=== PATIENT | female | born 1975 | race Caucasian/White ===

== ENCOUNTER 2019-05-22 09:14 | Emergency (ER) | payer OTHER, SELFPAY ==
--- NOTE | ~2019-05-22 | US_ITS ---
US venous doppler LE RT DATE: 05/22/2019 11:58 INDICATION: Right lower extremity pain. Hysterectomy 2 weeks ago. TECHNIQUE: Real-time and color flow imaging and Doppler analysis of the veins of the right lower extr emity COMPARISON: 11/08/2016 venous duplex examination of the right lower extremity; no right lower extremit y deep venous thrombosis was noted FINDINGS: The greater saphenous vein is patent. There is spontaneous and phasic flow and normal augme ntation and color flow signal and normal compression of the deep veins of the right lower extremity. IMPRESSION: No evidence of deep venous thrombosis of right lower extremity Reviewed, dictated and finalized at [facility]. Reviewed, dictated and finalized at location B. PREPARATION KITCHEN AIDE
--- NOTE | ~2019-05-22 | CT_ITS ---
EXAMINATION: CTA chest PE protocol EXAM DATE: 05/22/2019 12:34 INDICATION: Left-sided chest pain. Back pain. Hysterectomy 2 weeks ago. TECHNIQUE: Spiral CTA of the chest (pulmonary arteries) was performed with 100 cc Omnipaque 350 intr avenous contrast injection. Images were acquired during the pulmonary arterial phase. Coronal maxi mum intensity projection 3D-reconstructions were created by the technologist on dedicated workstation . Axial, coronal and sagittal reformatted images were reviewed. The dose-length product (DLP) for t his examination was 164.97 mGy-cm. The exposure was tailored according to patient size (auto mA exp osure control), and iterative reconstruction (ASIR) was used as additional dose reduction technique. There is no prior study for comparison. FINDINGS: Pulmonary arteries are well opacified and without intraluminal filling defects. No thora cic aortic dissection. The lungs are clear. There are no pleural or pericardial effusions. Trach eobronchial tree is patent. There is no mediastinal, hilar or axillary lymphadenopathy. There is no pneumothorax. Heart normal in size. No evidence of coronary arterial calcification. Breast imp lants. Upper abdomen is unremarkable. The bones are unremarkable. IMPRESSION: 1. No pulmonary emboli or acute cardiothoracic findings. Reviewed, dictated and finalized at location A. E FUND ACCOUNTANT
[2019-05-22 09:22] VITALS: BP 131/75; PULSE 81; RESP 16; TEMP 36.4; O2SAT 100
[2019-05-22 11:08] VITALS: BP 131/75; O2SAT 100
--- NOTE | 2019-05-22 11:08 | ED.BACK ---
HPI - Back Pain/Injury General Chief Complaint: Back Pain/Injury Stated Complaint: BACK PAIN Time Seen by Provider: 05/22/19 11:07 Source: patient Mode of arrival: ambulatory Limitations: no limitations History of Present Illness HPI Narrative: Pt is a 43 y/o female who presents to ED with c/o constant rt upper back pain that radiates to her rt chest for 5 days, but has worsened in the last 2 days. She characterizes her pain as intermittently burning, stabbing, or a dull ache. Pt took Ibuprofen, used a heating pad, and rubbed on bengay with no relief. Her pain is aggravated when she breaths out, but she denies SOB. Pt denies her pain being aggravated with movement or alleviated with rest. She denies a cough but notes that she has palpitations but contributes it to her getting anxious about her pain. She reports rt thigh tightness that she has had since her hysterectomy surgery. Pt notes that she had a hysterectomy 2 weeks ago and she had a check-up yesterday that was normal. She stopped taking her pain medicine from her hysterectomy yesterday. Pt denies BLE swelling. MD elicited complaint: back pain Onset (ago): day(s) (5) Timing: constant and progressively worsening (in the last 2 days) Quality: burning, dull, stabbing and aching Location: right upper back Radiation: chest (rt) Exacerbating factors: other (breathing out) Relieving factors: none Context: other (hysterectomy 2 weeks ago) Associated symptoms: other (rt thigh tightness, palpitations) Treatments prior to arrival: heat therapy and other (Ibuprofen, bengay) Related Data Home Medications Medication Instructions Recorded Confirmed No Home Medications 05/22/19 05/22/19 Allergies Allergy/AdvReac Type Severity Reaction Status Date / Time Penicillins Allergy Severe Rash Verified 05/22/19 11:12 Review of Systems Review of Systems: All systems reviewed & are unremarkable except as noted in HPI and below Cardiovascular: Cardiovascular: Reports chest pain (rt) and Reports palpitations Respiratory: Respiratory: Denies cough and Denies dyspnea Musculoskeletal: Musculoskeletal: Reports back pain (rt upper) and Reports other (rt thigh tightness) Comments: Denies BLE swelling PMFSH Past Medical History Medical History (Updated 05/22/19 @ 14:43 by Araceli Wood MD) Anxiety History of anemia History of hypothyroidism resolved Ovarian cyst Psoriasis Uterine polyp Surgical History Surgical History (Updated 05/22/19 @ 11:43 by Meme Rondon) H/O cervical polypectomy H/O prior ablation treatment For excessive vaginal bleeding H/O: hysterectomy Hx of breast implants, bilateral Social History Social History (Updated 05/22/19 @ 11:43 by Meme Rondon) Smoking status: Never smoker Comments Her OBGYN is Dr. Shearer and her PCP is Dr. Fischer. Exam Const: General: cooperative, no acute distress and alert Nutritional Appearance: well nourished Orientation/consciousness: patient oriented x3 Limitations: no limitations HENMT: Mouth: Yes lip normal and Yes moist mucous membranes Resp: Effort & Inspection: normal respiratory effort Auscultation: clear to auscultation bilaterally Cardio: Rate: regular rate Rhythm: regular rhythm GI: GI Palp: Yes Soft to palpation and Yes Tenderness to palpation present (GI) (mild lower ABD) Auscultation: normal bowel sounds Skin: General skin exam: normal color Rashes: no rashes Neuro: General: patient oriented x3 Cognition (Neuro): normal cognition Speech: normal speech Extrem: General: normal to inspection, full ROM and no clubbing, cyanosis or edema Right lower extremity: hip/thigh Details: tenderness (thigh, mild) and lower leg Details: tenderness (mild, calf) Psych: Mental Status: mental status grossly normal Affect: normal affect Attitude: cooperative Course Course Emergency Course: Patient with no acute abnormalities noted on testing to account for symptomatology. No evidence of pulmonary e
--- NOTE | 2019-05-22 11:19 | ECG_ITS ---
Measurements Intervals [place] Rate: 71 P: 64 TN: 153 QRS: 39 QRSD: 92 T: 53 QT: 364 QTc: 396 Interpretive Statements SINUS RHYTHM RSR' IN V1 OR V2, CONSIDER RIGHT VENTRICULAR HYPERTROPHY OR RIGHT VCD BORDERLINE T WAVE ABNORMALITY- INFERIOR LEADS BORDERLINE ECG Electronically Signed On 05-22-2019 16:16:38 RESEARCH AND DEVELOPMENT SPECIALIST by Bong Begum D.O.
[2019-05-22 12:06] LABS: Basophils Absolute Auto 0.1 K/mm3 (0.0-0.1); Basophils Percent Auto 0.9 % (0.2-1.2); Eosinophils Absolute Auto 0.1 K/mm3 (0-0.3); Eosinophils Percent Auto 1.6 % (0-4.4); Hematocrit 37.7 % (37.0-47.0); Hemoglobin 12.9 g/dL (12.0-15.0); Immature Granulocyte Absolute 0.02 K/mm3 (0.00-0.031); Immature Granulocyte Percent A 0.3 % (0-0.5); Lymphocytes Absolute Auto 1.47 K/mm3 (0.9-3.2); Lymphocytes Percent Auto 22.9 % (18.3-44.2); Mean Corpuscular HGB Conc 34.2 g/dl (32-36); Mean Corpuscular Hemoglobin 29.6 pg (26-34); Mean Corpuscular Volume 86.5 fl (80-100); Mean Platelet Volume 9.5 fl (7.4-10.4); Monocytes Absolute Auto 0.3 K/mm3 (0.1-0.6); Monocytes Percent Auto 3.9 % (2.6-8.5); Neutrophils Absolute Auto 4.5 K/mm3 (1.3-6.7); Neutrophils Percent Auto 70.4 % (45.5-73.1); Platelet Count Result 267 k/mm3 (150-375); Red Blood Count 4.36 M/mm3 (4.2-5.4); Red Cell Distribution Width 11.9 % (11.5-14.5); White Blood Count 6.4 K/mm3 (4.5-10.0)
[2019-05-22 12:17] LABS: Blood Urea Nitrogen 9 mg/dL (7-17); Calcium 9.4 mg/dL (8.4-10.2); Carbon Dioxide 25 mmol/L (22-30); Chloride 99 mmol/L (98-107); Estimated CRCL calculation 77 ml/min; Estimated Glomerular Filt Rate > 60; Glucose 94 mg/dL (65-105); Partial Thromboplastin Time 30.4 SECONDS (22.3-36.8); Potassium 3.9 mmol/L (3.4-5.0); Sodium 139 mmol/L (137-145)
[2019-05-22 12:21] LABS: Prothrombin Time 12.5 Seconds (11.1-14.7)
[2019-05-22 12:28] VITALS: PULSE 75; RESP 18; O2SAT 100
[2019-05-22 12:30] LABS: NT Pro B Type Natriuretic Pept 86 PG/ML (5-100); Troponin I < 0.012 ng/mL (0.000-0.034)
[2019-05-22] MEDS: KETOROLAC 30 MG/ML VIAL (*BKC) IV PUSH (12:45)
[2019-05-22 14:30] VITALS: BP 117/90; PULSE 75; RESP 16
== END 2019-05-22 14:57 | disposition home or self-care (01) ==
PROVIDERS: Emergency Provider Emergency Medicine; PCP Family Medicine
DX: R07.81 Pleurodynia (principal); M54.6 Pain in thoracic spine; Z86.2 Personal history of diseases of the blood and blood-forming organs and certain disorders involving the immune mechanism; R94.31 Abnormal electrocardiogram [ECG] [EKG]
CPT/HCPCS: 36415; 71275; 80048; 83880; 84484; 85025; 85610; 85730; 93005; 93971; 96374; 99284; J1885; Q9967

== ENCOUNTER 2019-09-23 15:05 | Outpatient (CLI) | payer OTHER, SELFPAY ==
--- NOTE | ~2019-09-23 | XR_ITS ---
EXAMINATION: XR tibia fibula LT 2V EXAM DATE: 09/23/2019 15:33 INDICATION: Left leg pain. Hit on metal bed frame. Initial encounter. TECHNIQUE: Left tibia/fibula frontal and lateral projections obtained and reviewed. There is no prio r study for comparison. FINDINGS: Left tibial and fibular shafts unremarkable. There are no acute fractures or dislocations identified. There is no subcutaneous gas. The soft tissue is unremarkable. There are no radiopaq ue foreign bodies. IMPRESSION: 1. Unremarkable XR tibia fibula LT 2V exam. Reviewed, dictated and finalized at location A.
== END 2019-09-23 15:06 | disposition home or self-care (01) ==
PROVIDERS: PCP Family Medicine; Visit Provider Family Medicine
DX: M79.605 Pain in left leg (principal)
CPT/HCPCS: 73590

== ENCOUNTER 2020-01-21 11:24 | Outpatient (CLI) | payer OTHER, SELFPAY ==
--- NOTE | ~2020-01-21 | XR_ITS ---
XR_CERV2-3V_CR DATE: 01/21/2020 11:58 INDICATION: Neck pain. No injury. TECHNIQUE: AP, open-mouth, lateral and odontoid views COMPARISON: None FINDINGS: Normal alignment of the cervical spinal. C1 and C2 are normally aligned and the odontoid pr ocess is intact. No fracture or dislocation or locked facet. No prevertebral soft tissue swelling. Ce rvical interspaces are preserved. IMPRESSION: Negative Reviewed, dictated and finalized at [facility]. Reviewed, dictated and finalized at location A. IMPRESSION: Negative
--- NOTE | ~2020-01-21 | XR_ITS ---
XR thoracic spine 2V DATE: 01/21/2020 11:58 INDICATION: Back pain TECHNIQUE: AP, lateral views COMPARISON: None FINDINGS: Normal alignment of the thoracic spine. No fracture or dislocation or bone destruction. The thoracic pedicles are intact. There is minimal degenerative spurring of the thoracic vertebrae. No p araspinal soft tissue thickening. IMPRESSION: Minimal degenerative spurring Reviewed, dictated and finalized at location A.
== END 2020-01-21 11:25 | disposition home or self-care (01) ==
PROVIDERS: PCP Family Medicine; Visit Provider Nurse Practitioner Family
DX: M54.2 Cervicalgia (principal); M54.6 Pain in thoracic spine; M77.8 Other enthesopathies, not elsewhere classified
CPT/HCPCS: 72040; 72070

== ENCOUNTER → 2020-03-23 11:22 | Outpatient (CLI) | payer OTHER, SELFPAY ==
--- NOTE | ~2020-03-23 | MM_ITS ---
EXAMINATION: MM scrn donna implant BI w elver HISTORY: Screening mammogram TECHNIQUE: Craniocaudal and mediolateral oblique 3-D tomosynthesis images with implant displacement a nd synthetic 2-D images were generated. Craniocaudal and mediolateral oblique views of the breasts wi thout implant displacement were obtained using full field digital mammography. CAD analysis was submi tted and interpreted. COMPARISON: 12/03/2018 BREAST PARENCHYMAL COMPOSITION: The breasts are heterogeneously dense, which may obscure small masses . FINDINGS: There are bilateral subpectoral silicone implants. There is no evidence of suspicious mass, calcification, or architectural distortion to suggest malignancy in either breast. There has been no suspicious interval change. IMPRESSION: 1. No mammographic evidence of malignancy. 2. Recommend routine screening mammography in one year. BI-RADS Category 1: Negative Reviewed, dictated and finalized at location A. E DIRECTOR
== END ==
PROVIDERS: PCP Family Medicine; Visit Provider Obstetrics & Gynecology
DX: Z12.31 Encounter for screening mammogram for malignant neoplasm of breast (principal)
CPT/HCPCS: 77063; 77067

== ENCOUNTER 2020-06-02 15:55 | Emergency (ER) | payer OTHER, SELFPAY ==
[2020-06-02 16:03] VITALS: BP 127/82; PULSE 75; RESP 16; TEMP 37.1; O2SAT 100
--- NOTE | 2020-06-02 16:09 | ED.FEMALEGU ---
HPI - Female Genitourinary General Chief complaint: Urogenital-Female Stated complaint: uti Source: patient and RN notes reviewed Limitations: no limitations History of Present Illness HPI Narrative: The patient, on minimal medications, presents with urinary symptoms. Patient states she has a about a week history of urinary frequency, low back pain associated with urinary malodor . No fever, hematuria, vomiting/diarrhea, urgency. She has had a hysterectomy; and does not desire STD, testing. Related Data Home Medications Medication Instructions Recorded Confirmed multivitamin [Multivitamin 1 tablet PO DAILY 06/02/20 06/02/20 W/Vitamin C] Allergies Allergy/AdvReac Type Severity Reaction Status Date / Time Penicillins Allergy Intermediate Rash Verified 06/02/20 16:06 Review of Systems Review of Systems: Narrative: General/Constitutional: No weight loss,fever Eyes: N0: Redness,discharge Ears/Nose/Throat: No: Epistaxis,ear discharge Respiratory: Denies: Hemoptysis Gastrointestinal: No Vomiting, Bleeding-rectal Skin: No Lumps, eruption Neurologic: No Focal Weakness,Sz Hematologic: Denies: Petechiae/Purpura Psychiatric: No: Suicida ideationl All Other Systems: Reviewed and Negative [facility] Past Medical History Medical History (Updated 06/02/20 @ 16:22 by Thomas Wilcox MD) Anxiety History of anemia History of hypothyroidism resolved Ovarian cyst Psoriasis Uterine polyp Surgical History Surgical History (Updated 05/22/19 @ 11:43 by Meme Rondon) H/O cervical polypectomy H/O prior ablation treatment For excessive vaginal bleeding H/O: hysterectomy Hx of breast implants, bilateral Social History Social History (Updated 05/22/19 @ 11:43 by Meme Rondon) Smoking status: Never smoker Gender identity (if verbalized by the patient): Female Comments At time of signature, agree with nursing past medical, surgical, social and family history. There is no relevant family history pertinent to the presenting complaint Exam Narrative: Exam Narrative: General Appearance: Well appearing, Conjunctiva clear Ears: External ear normal Nose: Normal nose Mouth/Throat: Normal appearing, Normal lips: Supple Respiratory: Airway patent, No respiratory distress Abdomen: Soft, Non-tender, Musculoskeletal: Full ROM Skin: Warm, Dry Neurological: A&O x3, Normal affect Course Vital Signs Vital signs: Vital Signs Temperature 98.8 F 06/02/20 16:03 Pulse Rate 75 06/02/20 16:03 Respiratory Rate 16 06/02/20 16:03 Blood Pressure 127/82 06/02/20 16:03 Pulse Oximetry 100 06/02/20 16:03 Temperature 98.8 F 06/02/20 16:03 Pulse Rate 75 06/02/20 16:03 Respiratory Rate 16 06/02/20 16:03 Blood Pressure 127/82 06/02/20 16:03 Pulse Oximetry 100 06/02/20 16:03 MDM - Female Genitourinary Lab Data Labs: Urine Glucose Negative Reference Range: Negative Urine Bilirubin Negative Reference Range: Negative Urine Ketone Negative Reference Range: Negative Urine Specific Klemme 1.030 Reference Range:1.001-1.035 Urine Blood Negative Reference Range: Negative * * Urine pH 6.0 Reference Range: 5.0-9.0 Urine Protein Negative Reference Range: Negative Urine Urobilinogen 0.2 Reference Range: 0.2-1.0 Urine Nitrate Negative
== END 2020-06-02 16:25 | disposition home or self-care (01) ==
PROVIDERS: Emergency Provider Emergency Medicine; PCP Family Medicine
DX: N30.00 Acute cystitis without hematuria (principal)
CPT/HCPCS: 81003; 87086; 99213; G0463

== ENCOUNTER 2020-06-12 07:57 | Outpatient (CLI) | payer OTHER, SELFPAY ==
--- NOTE | ~2020-06-12 | US_ITS ---
US abdomen complete DATE: 06/12/2020 11:10 INDICATION: Abdominal pain TECHNIQUE: Real-time imaging of the abdomen, Doppler analysis COMPARISON: 12/25/2017 CT abdomen pelvis FINDINGS: No hepatic or pancreatic space-occupying mass lesion. Normal hepatopedal portal venous flow direction. No gallstones or gallbladder wall thickening. Negative sonographic May's sign. Common bile duct measures 2.8 mm, normal. Normal caliber of the abdominal aorta. The inferior vena cava is unremarkable. Splenic size within normal limits. No renal mass lesion or hydronephrosis. IMPRESSION: Negative examination Reviewed, dictated and finalized at Location [facility]. Reviewed, dictated and finalized at location A. RMINATOR HELPER IMPRESSION: Negative examination
== END 2020-06-12 07:58 | disposition home or self-care (01) ==
PROVIDERS: PCP Family Medicine; Visit Provider Family Medicine
DX: R10.9 Unspecified abdominal pain (principal)
CPT/HCPCS: 76700

== ENCOUNTER → 2020-11-03 08:40 | Outpatient (CLI) | payer OTHER, SELFPAY ==
--- NOTE | ~2020-11-03 | MM_ITS ---
EXAMINATION: MM diag donna implant RT w elevr HISTORY: Right breast pain TECHNIQUE: Additional 3-D tomosynthesis images of the right breast were performed and synthetic 2-D i mages were generated. CAD analysis was submitted and interpreted. High resolution complete right lydia st ultrasound was performed. COMPARISON: Comparison to multiple prior studies sequentially, with oldest reviewed study dated 02/15. BREAST PARENCHYMAL COMPOSITION: BREAST PARENCHYMAL COMPOSITION: There are scattered areas of fibrogla ndular density. FINDINGS: MAMMOGRAPHIC FINDINGS: There are no suspicious masses, calcifications or architectural distortion in the right breast to sug gest malignancy. There is a subpectoral silicone implant. ULTRASOUND: Limited right breast ultrasound: At 10:00, 4.5 cm from the nipple there is an oval circumscribed hypo echoic mass measuring 5 mm just superficial to the breast implant. There is enhanced through transmis kj. Parallel orientation. IMPRESSION: 1. Probable benign 5 mm right breast mass at 10:00, 4.5 cm from the nipple. 2. Recommend 6 month follow-up limited right breast ultrasound BI-RADS category 3, probably benign findings. Reviewed, dictated and finalized at location A.
--- NOTE | ~2020-11-03 | US_ITS ---
Please refer to diagnostic mammogram report dated 11/03/2020 for details. Reviewed, dictated and finalized at location A.
== END ==
PROVIDERS: PCP Family Medicine; Visit Provider Family Medicine
DX: N63.11 Unspecified lump in the right breast, upper outer quadrant (principal); N64.4 Mastodynia
CPT/HCPCS: 76641; 77061; 77065; G0279

== ENCOUNTER 2020-12-07 10:45 | Outpatient (CLI) | payer OTHER, SELFPAY ==
--- NOTE | ~2020-12-07 | XR_ITS ---
XR thoracic spine 3V DATE: 12/07/2020 11:14 INDICATION: Thoracic back pain. Back pain TECHNIQUE: AP, lateral, swimmer views COMPARISON: None FINDINGS: Normal alignment. No fracture or bone destruction or paraspinal soft tissue thickening. The thoracic pedicles are intact. There is minimal degenerative spurring of the thoracic spine. IMPRESSION: Minimal degenerative spurring Reviewed, dictated and finalized at location A.
== END 2020-12-07 10:46 | disposition home or self-care (01) ==
PROVIDERS: PCP Family Medicine; Visit Provider Family Medicine
DX: M47.814 Spondylosis without myelopathy or radiculopathy, thoracic region (principal)
CPT/HCPCS: 72072

== ENCOUNTER 2021-07-07 00:03 | Day surgery (SDC) | payer OTHER, SELFPAY ==
[2021-06-23 14:48] VITALS: BMI 21.7
--- NOTE | 2021-07-06 13:03 | PM.HPGS ---
History of Present Illness History of Present Illness Consent: Risks, benefits, and alternatives have been discussed and questions answered. Patient agrees to proceed with procedure. Chief complaint: neoplasm screening, epigastric pain Narrative: Samara Collins is a 45 year old female who for 8 or 9 months has been troubled by pain in the epigastric and subxiphoid area. it was thought that she may have reflux. She however does not have typical heartburn. She also denies dysphagia. the pain can be quite severe at times. There is no particular pattern to the pain which may last for hours or even a few days at a time. Often will radiate around to the back near her shoulder. She did have a gallbladder ultrasound that was negative and was a good study of the gallbladder, liver, pancreas bile ducts and adjacent structures. . She is also due for colon cancer screening Review of Systems Review of Systems: All systems reviewed & are unremarkable except as noted in HPI and below PMFSH Past Medical History Medical History Anxiety History of anemia History of hypothyroidism resolved Ovarian cyst Psoriasis Uterine polyp Surgical History Surgical History H/O cervical polypectomy H/O prior ablation treatment For excessive vaginal bleeding H/O: hysterectomy Hx of breast implants, bilateral Social History Social History Smoking status: Never smoker Alcohol intake: current Drinks per week: 1 Substance use: never Living arrangements: with family Gender identity (if verbalized by the patient): Female Meds Home Medications and Allergies Home Medications Medication Instructions Recorded Confirmed Type Quercetin 1 cap PO DAILY 06/23/21 07/07/21 History cyanocobalamin (vitamin B-12) 250 mcg PO DAILY 06/23/21 07/07/21 History [Vitamin B-12] ergocalciferol (vitamin D2) 1,000 unit PO DAILY 06/23/21 07/07/21 History [Vitamin D2] pantoprazole 40 mg PO QAM 06/23/21 07/07/21 History Allergies Allergy/AdvReac Type Severity Reaction Status Date / Time Penicillins Allergy Intermediate Rash Verified 07/07/21 06:42 Exam Const: General: alert Orientation/consciousness: patient oriented x3 Resp: Auscultation: clear to auscultation bilaterally Cardio: Rhythm: regular rhythm GI: GI Palp: Yes Soft to palpation and No Tenderness to palpation present (GI) Neuro: General: patient oriented x3 Assessment and Plan Assessment and plan (1) Epigastric pain: Code(s): R10.13 - Epigastric pain Status: Acute Assessment and Plan: EGD with possible biopsy or dilatation or cautery. (2) Colon cancer screening: Code(s): Z12.11 - Encounter for screening for malignant neoplasm of colon Status: Acute Assessment and Plan: Colonoscopy with possible biopsy or polypectomy or cautery or injection of substances.
--- NOTE | 2021-07-07 06:27 | P.PNAN_ITS ---
Anes - Initial Pre Proc Eval Procedure: Operation Date: 07/07/21 08:00 Proposed Procedures p Esophagogastroduodenoscopy & Screening Colonoscopy - Kian Encarnacion MD Date/Time: 07/07/21 06:27 Surgeon: Kian Encarnacion MD Pre Op Diagnosis: neoplasm screening, epigastric pain Patient Data Age: 45 Gender: F Height: 1.55 m Weight: 52 kg Allergies Allergy/AdvReac Type Severity Reaction Status Date / Time Penicillins Allergy Intermediate Rash Verified 07/07/21 06:42 Home Medications Medication Instructions Recorded Confirmed Type Quercetin 1 cap PO DAILY 06/23/21 07/07/21 History cyanocobalamin (vitamin B-12) 250 mcg PO DAILY 06/23/21 07/07/21 History [Vitamin B-12] ergocalciferol (vitamin D2) 1,000 unit PO DAILY 06/23/21 07/07/21 History [Vitamin D2] pantoprazole 40 mg PO QAM 06/23/21 07/07/21 History Patient hx anesthesia problems: none Family hx anesthesia problems: none Results Review: All pre-operative results and documents have been reviewed as part of the pre-operative evaluation. [facility] Past Medical History Medical History Anxiety History of anemia History of hypothyroidism resolved Ovarian cyst Psoriasis Uterine polyp Surgical History Surgical History H/O cervical polypectomy H/O prior ablation treatment For excessive vaginal bleeding H/O: hysterectomy Hx of breast implants, bilateral Social History Social History Smoking status: Never smoker Alcohol intake: current Drinks per week: 1 Substance use: never Living arrangements: with family Gender identity (if verbalized by the patient): Female Anes - Eval Final PreProcedure Day of Procedure 07/07/21 06:27 Patient weight: normal Heart: regular rate and rhythm Lungs: clear to auscultation and normal air movement Airway: Mallampati scale class II Neurological: alert and oriented Last oral intake: >/= 8 hours ASA classification: II Emergent: no Anesthetic plan: proceed Anesthesia type and monitoring: general GIVS and standard monitoring Results Review: All pre-operative results and documents have been reviewed as part of the pre-operative evaluation. Informed Consent: The patient's anesthetic plan and its attendant risks and benefits were discussed with the patient/family/POA. Questions were solicited and answers provided to the satisfaction of the patient/family/POA.
[2021-07-07 06:44] VITALS: BP 123/86; PULSE 80; RESP 16; TEMP 36.3; O2SAT 100
[2021-07-07] MEDS: LACTATED RINGERS 1,000 ML 150 ML IV CONT (06:52)
[2021-07-07] MEDS: BENZOCAINE (*SP) 60 ML SPRAY CAN (HURRICAINE) 1 SPRAY MUCOUS MEM (07:58)
--- NOTE | 2021-07-07 08:22 | SUR.OPER ---
EGD start 799 end 802, COLON start 809 - end 819.
[2021-07-07 08:24] VITALS: BP 110/70; PULSE 78; RESP 19; O2SAT 100
[2021-07-07 08:34] VITALS: BP 107/68; PULSE 67; RESP 22; O2SAT 100
[2021-07-07 08:44] VITALS: BP 128/80; PULSE 74; RESP 20; O2SAT 100
== END 2021-07-07 08:56 | disposition home or self-care (01) ==
PROVIDERS: PCP Family Medicine; Visit Provider Internal Medicine Gastroenterology
PROC: 0DJ08ZZ Inspection of Upper Intestinal Tract, Via Natural or Artificial Opening Endoscopic (ICD-10-PCS; CPT 43235; principal; 2021-07-07 08:00)
DX: Z12.11 Encounter for screening for malignant neoplasm of colon (principal); K57.30 Diverticulosis of large intestine without perforation or abscess without bleeding; R10.13 Epigastric pain
CPT/HCPCS: 45378; 43239; 87081; 88305; J2704; J7120

== ENCOUNTER → 2021-10-10 08:14 | Outpatient (CLI) | payer OTHER, SELFPAY ==
--- NOTE | ~2021-10-10 | MMUS_ITS ---
EXAMINATION: MM diag donna implant BI w elver, US breast RT limited HISTORY: Follow-up right breast mass TECHNIQUE: Additional 3-D tomosynthesis images of the right breast were performed and synthetic 2-D i mages were generated. CAD analysis was submitted and interpreted. High resolution right breast ultras ound was performed. COMPARISON: Comparison to multiple prior studies sequentially, with oldest reviewed study dated 02/15. BREAST PARENCHYMAL COMPOSITION: The breasts are heterogenously dense, which may obscure small masses FINDINGS: MAMMOGRAPHIC FINDINGS: There are no suspicious masses, calcifications or architectural distortion in either breast to sugges t malignancy. There are bilateral subpectoral silicone implants. ULTRASOUND: Limited right breast ultrasound: At 10:00, 4.5 cm from the nipple there is a 2 mm cyst. No new masses are identified. IMPRESSION: 1. No evidence for malignancy in either breast. 2. Routine yearly screening mammogram and regular clinical breast examination are recommended. BI-RADS Category 2: Benign finding(s). Reviewed, dictated and finalized at location A. IMPRESSION: 1. No evidence for malignancy in either breast. 2. Routine yearly screening mammogram and regular clinical breast examination a re recommended. BI-RADS Category 2: Benign finding(s).
== END ==
PROVIDERS: PCP Family Medicine; Visit Provider Family Medicine
DX: R92.8 Other abnormal and inconclusive findings on diagnostic imaging of breast (principal)
CPT/HCPCS: 76642; 77062; 77066; G0279

== ENCOUNTER 2022-07-12 19:30 | Emergency (ER) | payer OTHER, SELFPAY ==
[2022-07-12 19:38] VITALS: BP 131/76; PULSE 128; RESP 20; TEMP 37.7; O2SAT 98
--- NOTE | 2022-07-12 19:42 | ED.URI ---
HPI - URI/Sore Throat General Chief Complaint: Upper Respiratory Infection Stated Complaint: FEVER/BACK PAIN/COUGH/SORE THROAT Time Seen by Provider: 07/12/22 19:42 Source: patient and RN notes reviewed History of Present Illness HPI Narrative: Patient is a 46-year-old female who presents to urgent care with complaints of fever, back pain, sore throat cough. Patient states that she was sitting next to a child that was positive for strep this evening. Patient states this all started approximately 330 this afternoon. Patient has taken Advil for her symptoms. Denies any nausea, vomiting. Denies any urinary symptoms. No other acute complaints. No acute distress noted. Patient aware of the plan of care. Some parts of this dictation were generated by voice recognition software and may contain typographical and/or grammatical inaccuracies. Related Data Home Medications Medication Instructions Recorded Confirmed calcipotriene-betamethasone 0.005 1 applic topical DIRECTED 07/12/22 07/12/22 %-0.064 % topical ointment Allergies Allergy/AdvReac Type Severity Reaction Status Date / Time Penicillins Allergy Intermediate Rash Verified 07/12/22 19:34 Review of Systems Review of Systems: CONSTITUTIONAL: Reports fever and chills EYES: Denies visual changes, redness, or discharge. ENT: Denies rhinorrhea, congestion, otalgia. Reports of sore throat CARDIOVASCULAR: Denies chest pain, palpitations, or edema. RESPIRATORY: Denies cough or dyspnea. GASTROINTESTINAL: Denies abdominal pain, nausea, vomiting, or diarrhea. GENITOURINARY: Denies dysuria or hematuria. SKIN: Denies rash or itching. MUSCULOSKELETAL reports of low back pain and body aches NEUROLOGIC: Denies headache, numbness, or weakness. All other systems reviewed are negative, except as documented in HPI. [facility]LY [facility] Past Medical History Medical History Anxiety History of anemia History of hypothyroidism resolved Ovarian cyst Psoriasis Uterine polyp Surgical History Surgical History H/O cervical polypectomy H/O prior ablation treatment For excessive vaginal bleeding H/O: hysterectomy H/O: hysterectomy Hx of breast implants, bilateral Family History Family History (Updated 10/20/21 @ 08:35 by Lety Wooten MA) Sibling Acute myocardial infarction Social History Social History (Updated 10/20/21 @ 08:35 by Lety Wooten MA) Smoking status: Never smoker Alcohol intake: current Drinks per week: 1 Substance use: never Living arrangements: with family Occupation/Education: occupation 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 There is no relevant family history pertinent to the patient complaint. Exam Narrative: GENERAL: This is a well-nourished, well-developed patient, in no apparent distress. HEAD: normocephalic, atraumatic. EYES: PERRL. Sclera clear/white. Vision is grossly intact. EARS: External ears normal, auditory canals clear and without drainage, TMs normal without perforation. Hearing grossly intact. NOSE: External nose normal with no obvious nasal discharge, nares without redness, no rhinorrhea. THROAT: Mucous membranes moist, posterior pharynx clear. Mild postnasal drainage NECK: Neck supple RESPIRATORY: Clear to auscultation. Breath sounds equal bilaterally. No wheezes, rales, or rhonchi. SKIN: warm, intact with no suspicious lesions or rash, good texture and turgor. NEURO: awake, alert, and oriented to person, place and time. There were no obvious focal neurologic abnormalities. EXTREMITIES: No clubbing, cyanosis, or edema. BACK: Mild bilateral CVA tenderness Course Course Level of Care: Express Care Visit Vital
== END 2022-07-12 20:02 | disposition home or self-care (01) ==
PROVIDERS: Emergency Provider Nurse Practitioner Family; PCP Family Medicine
DX: J02.9 Acute pharyngitis, unspecified (principal); R50.9 Fever, unspecified; L40.9 Psoriasis, unspecified
CPT/HCPCS: 81003; 87081; 87880; 99213; G0463

== ENCOUNTER 2022-07-20 17:53 | Outpatient (CLI) | payer OTHER, SELFPAY ==
--- NOTE | ~2022-07-20 | XR_ITS ---
XR chest 2V DATE: 07/20/2022 18:14 INDICATION: Nonproductive cough for one week TECHNIQUE: PA and lateral views COMPARISON: May 22, 2019 CT pulmonary scan FINDINGS: Normal heart size. No hilar or mediastinal enlargement. No pulmonary infiltrate or consolid ation, pleural effusion or pulmonary vascular congestion or pneumothorax. Included skeletal structure s are unremarkable. IMPRESSION: Negative Reviewed, dictated and finalized at location A. IMPRESSION: Negative
== END 2022-07-20 17:54 | disposition home or self-care (01) ==
PROVIDERS: PCP Family Medicine; Visit Provider Family Medicine
DX: R05.9 Cough, unspecified (principal)
CPT/HCPCS: 71046

== ENCOUNTER 2023-02-25 09:06 | Emergency (ER) | payer OTHER, SELFPAY ==
[2023-02-25 09:17] VITALS: BP 106/79; PULSE 83; RESP 16; TEMP 36.8; O2SAT 99
--- NOTE | 2023-02-25 09:46 | ED.URI ---
HPI - URI/Sore Throat General Chief Complaint: Upper Respiratory Infection Stated Complaint: Strep test Time Seen by Provider: 02/25/23 09:46 Source: patient, RN notes reviewed and old records reviewed Mode of arrival: ambulatory Limitations: no limitations History of Present Illness HPI Narrative: 47 year old female who presents to [facility] care with complaints of sore throat that she reports came on suddenly 2 days ago. Patient reports that she had a headache last night and she also had low grade temp of 100.1F and took Advil at 0400 for her symptoms. 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 MD elicited complaint: fever, cough (low grade, headache) and sore throat Pertinent past history: other (previous strep) Onset (ago): day(s) (day 3 of symptoms) Consistency: progressively worsening Severity: mild Pain scale (0-10): 3 Able to tolerate fluids by mouth: Yes Exacerbating factors: swallowing Associated symptoms: fever (low grade, ), headache and sore throat Treatments prior to arrival: ibuprofen Related Data Allergies Allergy/AdvReac Type Severity Reaction Status Date / Time Penicillins Allergy Intermediate Rash Verified 02/25/23 09:10 Review of Systems Review of Systems: CONSTITUTIONAL: Reports malaise, chills, sweats, fever up to 100.1F EYES: Denies visual changes, redness, or discharge. ENT: Reports rhinorrhea, congestion, no sinus pain, no otalgia and positive for sore throat. CARDIOVASCULAR: Denies chest pain, palpitations, or edema. RESPIRATORY: Reports no cough.? Denies dyspnea. GASTROINTESTINAL: Denies abdominal pain, nausea, vomiting, diarrhea SKIN: Denies rash or itching. MUSCULOSKELETAL: Denies myalgia. NEUROLOGIC: Reports headache. All systems reviewed & are unremarkable except as noted in HPI and below PMFSH Past Medical History Medical History Anxiety History of anemia History of hypothyroidism resolved Ovarian cyst Psoriasis Uterine polyp Surgical History Surgical History H/O cervical polypectomy H/O prior ablation treatment For excessive vaginal bleeding H/O: hysterectomy H/O: hysterectomy Hx of breast implants, bilateral Family History Family History Sibling Acute myocardial infarction Social History Social History Smoking status: Never smoker Alcohol intake: current Drinks per week: 1 Substance use: never Lack of Transportation: No Lack of Food: Never True Current Housing: I Have Housing Concerned About Future Housing: No Difficulty Paying Gas/Electric Bills: No Difficulty Paying for Meds: No Currently Unemployed: No Education: Trade/Vocational Certificate Difficulty w/ Childcare or Family Care: No Living arrangements: with family Occupation/Education: occupation 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 There is no relevant family history pertinent to the presenting complaint Exam Narrative: GENERAL: Well-appearing, well-nourished, and in no acute distress. HEAD: Normocephalic EYES: PERRLA, conjunctivae clear ENT: Nares clear, turbinates edematous and erythematous, clear discharge. Mucous membranes moist. TM pearly harrington with dull light reflex bilaterally; no tragal tenderness. Oropharynx erythematous without lesions. Tonsils red enlarged and without exudate, no drooling, no hoarseness, no trismus, uvula midline. NECK: Supple. No lymphadenopathy CHEST: Clear to auscultation, breath sounds equal. No
== END 2023-02-25 10:01 | disposition home or self-care (01) ==
PROVIDERS: Emergency Provider Registered Nurse; PCP Family Medicine
DX: J02.9 Acute pharyngitis, unspecified (principal); Z20.818 Contact with and (suspected) exposure to other bacterial communicable diseases; L40.9 Psoriasis, unspecified
CPT/HCPCS: 87081; 87880; 99213; G0463

== ENCOUNTER 2023-09-21 19:53 | Emergency (ER) | payer OTHER, SELFPAY ==
--- NOTE | ~2023-09-21 | XR_ITS ---
EXAMINATION: XR ankle RT min 3V DATE: 09/21/2023 20:14 INDICATION: Right ankle pain. TECHNIQUE: 3 views of right ankle were obtained. COMPARISON: None. FINDINGS: Bone alignment is normal. No fracture. Joint spaces are normal. There is ankle soft tissue swelling. IMPRESSION: 1. No fracture. Reviewed, dictated and finalized at location E. IMPRESSION: 1. No fracture.
[2023-09-21 19:58] VITALS: BP 128/89; PULSE 85; RESP 16; TEMP 36.6; O2SAT 100
[2023-09-21] MEDS: IBUPROFEN 600 MG TABLET PO (20:19)
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
== END 2023-09-21 21:08 | disposition home or self-care (01) ==
PROVIDERS: Emergency Provider Emergency Medicine; PCP Family Medicine
DX: S93.401A Sprain of unspecified ligament of right ankle, initial encounter (principal); F41.9 Anxiety disorder, unspecified; V89.0XXA Person injured in unspecified motor-vehicle accident, nontraffic, initial encounter
CPT/HCPCS: 73610; 99283; A9270

== ENCOUNTER 2024-03-05 16:52 | Outpatient (CLI) | payer OTHER, SELFPAY ==
--- NOTE | ~2024-03-05 | XR_ITS ---
EXAMINATION: XR elbow RT min 3V DATE: 03/05/2024 17:10 INDICATION: Right elbow pain. TECHNIQUE: 4 views of right elbow were obtained. COMPARISON: None. FINDINGS: Alignment is normal. No fracture. Joint spaces are normal. No elbow joint effusion. IMPRESSION: 1. Normal right elbow. Reviewed, dictated and finalized at location A. BULANCE PARAMEDIC IMPRESSION: 1. Normal right elbow.
== END 2024-03-05 16:53 | disposition home or self-care (01) ==
DX: M25.521 Pain in right elbow (principal)
CPT/HCPCS: 73080

== ENCOUNTER 2024-03-18 08:16 | Emergency (ER) | payer OTHER, SELFPAY ==
[2024-03-18 08:24] VITALS: BP 125/87; PULSE 88; RESP 16; TEMP 37.3; O2SAT 100
--- NOTE | 2024-03-18 08:33 | ED.URI ---
HPI - URI/Sore Throat General Chief Complaint: Upper Respiratory Infection Stated Complaint: Sinus Infection Symptoms Time Seen by Provider: 03/18/24 08:25 Source: patient Mode of arrival: ambulatory Limitations: no limitations History of Present Illness HPI Narrative: Krupa is a 48-year-old female patient presenting to the clinic today with complaints possible sinus infection. She reports she has had nasal congestion, headache, sinus pressure x2 and half weeks. Over the last 4 days the pressure and headache is gotten worsen. She reports she is blowing out yellow nasal drainage. Feels constantly congested. Denies any shortness of breath or chest pain. No fevers, chills, or body aches. Has had sinus infections before and states that azithromycin works for her. MD elicited complaint: nasal congestion and sinus pain Related Data Home Medications Medication Instructions Recorded Confirmed cetirizine 10 mg tablet 10 mg PO DAILY 11/01/23 03/18/24 pantoprazole 40 mg tablet,delayed 40 mg PO DAILY 11/01/23 03/18/24 release Allergies Allergy/AdvReac Type Severity Reaction Status Date / Time Penicillins Allergy Intermediate Rash Verified 03/18/24 08:28 Review of Systems Review of Systems: Pertinent positives per HPI. Patient denies any fever, chills, rash, visual changes, dizziness, cough, shortness of breath, chest pain, palpitations, nausea, vomiting, diarrhea, constipation, abdominal pain, or any urinary issues. [facility] Past Medical History Medical History Anxiety History of anemia History of hypothyroidism resolved Ovarian cyst Psoriasis Uterine polyp Surgical History Surgical History H/O cervical polypectomy H/O prior ablation treatment For excessive vaginal bleeding H/O: hysterectomy H/O: hysterectomy Hx of breast implants, bilateral Family History Family History Sibling Acute myocardial infarction Social History Social History (Updated 11/01/23 @ 09:41 by Vanessa Vásquez MA) Smoking status: Never smoker Alcohol intake: current Drinks per week: 1 Substance use: never Do You Feel Safe in your Home?: Yes Lack of Transportation: No Lack of Food: Never True Current Housing: I Have Housing Concerned About Future Housing: No Difficulty Paying Gas/Electric Bills: No Difficulty Paying for Meds: No Currently Unemployed: No Education: Trade/Vocational Certificate Difficulty w/ Childcare or Family Care: No Living arrangements: with family Occupation/Education: occupation 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 There is no relevant family history pertinent to the patient complaint. Exam Narrative: General: Well-developed, well nourished, in no apparent distress Head: Normocephalic, atraumatic Eyes: Pupils equally round and reactive to light bilaterally, EOM intact, sclera and conjunctive clear, no discharge, lids normal Ears: TMs intact and congested, ear canals clear, no drainage, grossly hearing normal. Nose: Nares patent, yellow nasal discharge, severe inflammation, maxillary and frontal sinus tenderness. Mouth: Oral pharynx without lesions or masses, good dentition, MMM. Postnasal drip Neck: Supple, trachea midline, no enlargement of anterior or posterior cervical nodes, no thyroid masses or goiter palpable. Cardio: Regular rate and rhythm, s1 and s2 normal, no murmur appreciated. Resp: Clear to auscultation bilaterally, no rhonchi, rales, wheezing or rubs Course Course Emergency Course: Portions of this record may have been created with voice recognition software. Level of Care: Express Care Visit Vital Signs Vital signs: Vital Signs Temperature 37.3 C 03/18/24 08:24 Pulse Rate 88 03/18/24 08:24 Respiratory Rate 16 03/18/24 08:24 Blood Pressure 125/87 03/18/24 08:24 Pulse Oximetry 100 03/18/24 08:24 Temperature 37.3 C 03/18/24 08:24 Pulse Rate 88 03/18/24 08:24 Respiratory Rate 16 03/18/24 08:24 Blood Pressure 125/87 03/18/24 08:24 Pulse Oximetry 100 03/18/24 08:24 Vital signs reviewed MDM - URI/Sore Throat MDM Narrative Medical decision making narrative: At the time of visit patient is resting comfortably on the exam table. Patient appears to be nontoxic. Plan: I suspect patient has acute bacterial rhinosinusitis. Prescription for azithromycin and prednisone was sent to the pharmacy. Patient has allergies to penicillin and states that azithromycin works for her sinus infections. Supportive measures were discussed with the patient and they voiced understanding discharge instructions and agrees to treatment plan. Return precautions reviewed Differential Diagnosis Differential diagnosis: Likely upper respiratory infection, otitis media, sinusitis, viral infection, bronchitis, influenza, pharyngitis and other (COVID) Discharge Plan Discharge Clinical Impression: Acute bacterial rhinosinusitis Patient Disposition: Home, Self-Care Condition: Stable Instructions: Antibiotic Form, Rhinosinusitis (ED) Additional Instructions: Take prescription medications only as prescribed-azithromycin and prednisone Increase fluids and stay well hydrated Tylenol/motrin for pain/fever Flonase and OTC antihistamines as directed Vicks vapor rub to open sinuses Sinus rinses for congestion Cepacol spray, cough drops, throat lozenges, warm tea with honey/lemon, gargle salt water to soothe throat BRAT diet for diarrhea Clear liquids x 24 hours then advance as tolerated for nausea/vomiting Go to the ED if you develop a worsening in your condition- high fever not controlled by Tylenol or Motrin, dehydration, weakness, lethargy, shortness of breath, or chest pain. Follow up with your PCP in 3-5 days if symptoms persist. Prescriptions: New azithromycin 250 mg tablet See Rx Instructions .ROUTE .COMPLEX Qty: 6 0RF Rx Instructions: For 250 mg dose pack: take 500 mg today (day 1), then 250 mg for 4 days (days 2-5) prednisone 20 mg tablet 40 mg PO DAILY 5 Days Qty: 10 0RF No Action pantoprazole 40 mg tablet,delayed release (DR/EC) 40 mg PO DAILY cetirizine 10 mg tablet 10 mg PO DAILY Follow-up/Referrals: PHYSICIAN,ECHOCARDIOGRAPHY TECHNOLOGIST [Primary Care Provider] - Stand Alone Forms: Work/School Release IP Time of Disposition: 08:31 Quality NIHSS Nursing Documentation ED NIHSS nursing documentation: reviewed/agree
== END 2024-03-18 08:33 | disposition home or self-care (01) ==
PROVIDERS: Emergency Provider Nurse Practitioner Family
DX: J01.90 Acute sinusitis, unspecified (principal)
CPT/HCPCS: 99213; G0463

== ENCOUNTER 2024-07-16 08:10 | Emergency (ER) | payer OTHER, SELFPAY ==
[2024-07-16 08:14] VITALS: BP 112/70; PULSE 81; RESP 16; TEMP 36.7; O2SAT 99
--- NOTE | 2024-07-16 08:27 | ED_ITS ---
HPI - URI/Sore Throat General Chief Complaint: Upper Respiratory Infection Stated Complaint: SINUS CONGESTION/SORE THROAT/HEADACHE/NAUSEA Time Seen by Provider: 07/16/24 08:20 Source: patient Mode of arrival: ambulatory Limitations: no limitations History of Present Illness HPI Narrative: Krupa is a 48-year-old female patient presenting to the clinic today with complaints of sinus congestion, sore throat, headache, and nausea. She reports her symptoms have been going on for 3 weeks. 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 Denies any fevers, chills, chest pain, or shortness of breath. MD elicited complaint: sore throat and nasal congestion Related Data Home Medications ?Medication ?Instructions ?Recorded ?Confirmed ?Last Taken ?Type cetirizine 10 mg tablet 10 mg PO DAILY 11/01/23 03/18/24 Unknown History pantoprazole 40 mg tablet,delayed 40 mg PO DAILY 11/01/23 03/18/24 Unknown History release Allergies Allergy/AdvReac Type Severity Reaction Status Date / Time Penicillins Allergy Intermediate Rash Verified 07/16/24 08:23 Review of Systems Review of Systems: Pertinent positives per HPI. Patient denies any fever, chills, rash, visual changes, dizziness, shortness of breath, chest pain, palpitations, vomiting, diarrhea, constipation, abdominal pain, or any urinary issues. [facility] Past Medical History Medical History Uterine polyp Ovarian cyst History of hypothyroidism resolved History of anemia Psoriasis Anxiety Surgical History Surgical History H/O: hysterectomy H/O cervical polypectomy H/O: hysterectomy Hx of breast implants, bilateral H/O prior ablation treatment For excessive vaginal bleeding Family History Family History Sibling Acute myocardial infarction Social History Social History Smoking status: Never smoker Alcohol intake: current Drinks per week: 1 Substance use: never Do You Feel Safe in your Home?: Yes Lack of Transportation: No Lack of Food: Never True Current Housing: I Have Housing Concerned About Future Housing: No Difficulty Paying Gas/Electric Bills: No Difficulty Paying for Meds: No Currently Unemployed: No Education: Trade/Vocational Certificate Difficulty w/ Childcare or Family Care: No Living arrangements: with family Occupation/Education: occupation 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 There is no relevant family history pertinent to the patient complaint. Exam Narrative: General: Well-developed, well nourished, in no apparent distress Head: Normocephalic, atraumatic Eyes: Pupils equally round and reactive to light bilaterally, EOM intact, sclera and conjunctive clear, no discharge, lids normal Ears: TMs intact and congested, ear canals clear, no drainage, grossly hearing normal. Nose: Nares patent, yellow discharge, moderate inflammation, max sinus tenderness. Mouth: Oral pharynx without lesions or masses, good dentition, MMM. Postnasal drip Neck: Supple, trachea midline, no enlargement of anterior or posterior cervical nodes, no thyroid masses or goiter palpable. Cardio: Regular rate and rhythm, s1 and s2 normal, no murmur appreciated. Resp: Clear to auscultation bilaterally, no rhonchi, rales, wheezing or rubs Course Course Emergency Course: Portions of this record may have been created with voice recognition software. Level of Care: Express Care Visit Vital Signs Vital signs: Vital Signs Temperature 36.7 C 07/16/24 08:14 Pulse Rate 81 07/16/24 08:14 Respiratory Rate 16 07/16/24 08:14 Blood Pressure 112/70 07/16/24 08:14 Pulse Oximetry 99 07/16/24 08:14 Oxygen Delivery Room Air 07/16/24 08:14 Temperature 36.7 C 07/16/24 08:14 Pulse Rate 81 07/16/24 08:14 Respiratory Rate 16 07/16/24 08:14 Blood Pressure 112/70 07/16/24 08:14 Pulse Oximetry 99 07/16/24 08:14 Oxygen Delivery Room Air 07/16/24 08:14 Vital signs reviewed MDM - URI/Sore Throat MDM Narrative Medical decision making narrative: At the time of visit patient is resting comfortably on the exam table. Patient appears to be nontoxic. Plan: I suspect patient has acute sinusitis. Prescription for azithromycin and prednisone was sent to the pharmacy. Patient is allergic to penicillin and she states that other antibiotics other than azithromycin caused her upset stomach. Supportive measures were discussed with the patient and they voiced understanding discharge instructions and agrees to treatment plan. Return precautions reviewed Differential Diagnosis Differential diagnosis: Likely upper respiratory infection, otitis media, sinusitis, viral infection, bronchitis, influenza, pharyngitis and other (COVID) Discharge Plan Discharge Clinical Impression: Sinusitis Qualifiers: Sinusitis location: maxillary Chronicity: acute Recurrence: non-recurrent Qualified Code(s): J01.00 - Acute maxillary sinusitis, unspecified Patient Disposition: Home, Self-Care Condition: Stable Instructions: Antibiotic Form, Sinusitis (ED) Additional Instructions: Take prescription medications only as prescribed-azithromycin and prednisone Increase fluids and stay well hydrated Tylenol/motrin for pain/fever Flonase and OTC antihistamines as directed Vicks vapor rub to open sinuses Sinus rinses for congestion Cepacol spray, cough drops, throat lozenges, warm tea with honey/lemon, gargle salt water to soothe throat BRAT diet for diarrhea Clear liquids x 24 hours then advance as tolerated for nausea/vomiting Go to the ED if you develop a worsening in your condition- high fever not controlled by Tylenol or Motrin, dehydration, weakness, lethargy, shortness of breath, or chest pain. Follow up with your PCP in 3-5 days if symptoms persist. Patient Language: Latvian Prescriptions: New azithromycin 250 mg tablet See Rx Instructions .ROUTE .COMPLEX Qty: 6 0RF Rx Instructions: For 250 mg dose pack: take 500 mg today (day 1), then 250 mg for 4 days (days 2-5) prednisone 20 mg tablet 40 mg PO DAILY 5 Days Qty: 10 0RF No Action azithromycin 250 mg tablet See Rx Instructions .ROUTE .COMPLEX Qty: 6 0RF Rx Instructions: For 250 mg dose pack: take 500 mg today (day 1), then 250 mg for 4 days (days 2-5) prednisone 20 mg tablet 40 mg PO DAILY 5 Days Qty: 10 0RF pantoprazole 40 mg tablet,delayed release (DR/EC) 40 mg PO DAILY cetirizine 10 mg tablet 10 mg PO DAILY Follow-up/Referrals: Maral,Yanci Corrales, IMITATION MARBLE MECHANIC [Primary Care Provider] - Stand Alone Forms: Work/School Release IP Time of Disposition: 08:25 Quality NIHSS Nursing Documentation ED NIHSS nursing documentation: reviewed/agree
== END 2024-07-16 08:27 | disposition home or self-care (01) ==
PROVIDERS: Emergency Provider Nurse Practitioner Family
DX: J01.00 Acute maxillary sinusitis, unspecified (principal); L40.9 Psoriasis, unspecified
CPT/HCPCS: 99213; G0463

== ENCOUNTER 2025-01-08 15:58 | Outpatient (CLI) | payer OTHER, SELFPAY ==
--- NOTE | ~2025-01-08 | XR_ITS ---
EXAMINATION: XR sacrum coccyx min 2V, 01/08/2025 16:14 CDT HISTORY: Low back pain unspecified COMPARISON: No comparisons available. Findings: No acute fracture or malalignment. No significant degenerative changes. Soft tissues unremarkable. Impression: No acute fracture or malalignment. Reviewed, dictated and finalized at location P. Impression: No acute fracture or malalignment.
--- OUTSIDE RECORDS SUMMARY | 2025-01-08 17:41 | XMS_ITS | Encounter Summary ---
Author Organization [facility] Address [address] [place] [address] Phone Care Team Providers Care Vice President Financial Name Role Phone Carole Fischer MD Primary Care Provider + Encounter Details Date Type Department Care Team (Latest Contact Info) Description 10/20/2020 Orders Only [facility] Bridget Blount RN Social History Tobacco Use Types Packs/Day Years Used Date Smoking Tobacco: Never Smokeless Tobacco: Never Comments Unknown Sex and Gender Information Value Date Recorded Sex Assigned at Not on file Legal Sex Female 7:26 AM PRACTICE NURSE Gender Identity Female 09/08/2020 8:29 AM CDT Sexual Orientation Not on file documented as of this encounter Plan of Treatment Not on file documented as of this encounter Procedures Procedure Name Priority Date/Time Associated Diagnosis Comments SCAN - LABS 10/20/2020 documented in this encounter Results * SCAN - LABS (10/20/2020) us Bridget Blount RN Final Res ult documented in this encounter Visit Diagnoses Not on filedocumented in this encounter Care Teams Vice President Financial Relationship Specialty Start Date End Date Carole Fischer MD [address] [place] [address] PCP - General Family Medicine 02/11/20 documented as of this encounter
--- OUTSIDE RECORDS SUMMARY | 2025-01-08 17:41 | XMS_ITS | Clinical Summary ---
Author Organization [facility] Address [address] [place] [address] Care Team Providers Care Furniture And Bedding Inspector Name Role Phone Carole Fischer MD Primary Care Provider + Allergies Active Allergy Reactions Criticality Noted Date Comments Penicillins Medications vit D3-vit X-hbhinftkw-zenn [phone] rpgs-fpb-wz-mg tablet Take by mouth Active magnesium 30 mg tablet Take 30 mg by mouth 2 (two) times a day Prn twice weekly Active vitamin M69-yhruy acid 0.5-1 mg tablet Take by mouth daily Active ascorbic acid, vitamin C, (Vitamin C) 125 mg tablet,chewable 08/10/2019 Act huang cetirizine (ZyrTEC) 10 mg tablet Take 10 mg by mouth daily as needed 07/27/2020 Active cholecalciferol, vitamin D3, (VITAMIN D3 ORAL) Take 5,000 Units by mouth daily Active Active Problems Problem Noted Date Diagnosed Date Palpitations 10/06/2020 Family history of cardiac disorder in sister Benign fasciculations 06/10/2020 Eye twitch 06/10/2020 Social History Tobacco Use Types Packs/Day Years Used Date Smoking Tobacco: Never Smokeless Tobacco: Never Personal Safety Answer Date Recorded Getting School Help Needed Not on file 06/29 Comments Unknown Sex and Gender Information Value Date Recorded Sex Assigned at Not on file Legal Sex Female 7:26 AM ACCOUNT AUDITOR Gender Identity Female 09/08/2020 8:29 AM CDT Sexual Orientation Not on file Obstetrics History Last Filed Vital Signs Vital Sign Reading Time Taken Comments Blood Pressure 126/84 10/06/2020 2:24 PM CDT Pulse 77 10/06/2020 2:24 PM CDT Temperature 37 C (98.6 F) 06/10/2020 8:01 AM ACCOUNT AUDITOR Respiratory Rate - - Oxygen Saturation 99% 10/06/2020 2:24 PM CDT Inhaled Oxygen Concentration - - Weight 49.2 kg (108 lb 8 oz) 10/06/2020 2:24 PM CDT Height 154.9 cm (5' 1) 10/06/2020 2:24 PM CDT Body Mass Index 20.5 10/06/2020 2:24 PM CDT Plan of Treatment Not on file Insurance [employer] Care Teams Furniture And Bedding Inspector Relationship Specialty Start Date End Date Carole Fischer MD [address] [place] [address] [place] [id number] PCP - General Family Medicine 02/11/20
--- OUTSIDE RECORDS SUMMARY | 2025-01-08 17:41 | XMS_ITS | Clinical Summary ---
Author Organization [facility] Address [address] [place] [address] Care Team Providers Care Fiber Machine Tender Name Role Phone Carole Fischer MD Primary Care Provider [phone] Allergies Active Allergy Reactions Criticality Noted Date Comments Penicillins Rash Low 03/19/2018 Medications vitamin C 500 MG tablet Take 500 mg by mouth daily. Active multi vitamin/minerals tablet Take 1 tablet by mouth daily. Active docusate sodium 50 MG capsule Take by mouth 2 (two) times daily. Active Family History Medical History Relation Comments Hypertension Father Relation Status Comments Father Social History Tobacco Use Types Packs/Day Years Used Date Smoking Tobacco: Never Smokeless Tobacco: Never Alcohol Use Standard Drinks/Week Comments Yes 0 (1 standard drink = 0.6 oz pure alcohol) glass of wine with dinner couple times a month Comments Unknown Sex and Gender Information Value Date Recorded Sex Assigned at Not on file Legal Sex Female 10:49 PM CDT Gender Identity Not on file Sexual Orientation Not on file Last Filed Vital Signs Vital Sign Reading Time Taken Comments Blood Pressure 119/75 03/20/2018 1:51 PM SR. LOGISTICS ANALYST Pulse 73 03/20/2018 1:51 PM SR. LOGISTICS ANALYST Temperature 37.1 C (98.8 F) 03/20/2018 1:51 PM SR. LOGISTICS ANALYST Respiratory Rate 18 03/20/2018 1:51 PM SR. LOGISTICS ANALYST Oxygen Saturation 100% 03/20/2018 1:51 PM SR. LOGISTICS ANALYST Inhaled Oxygen Concentration - - Weight 50.7 kg (111 lb 12.4 oz) 018 10:11 AM SR. LOGISTICS ANALYST Height 154.9 cm (5' 1) 03/20/2018 10:1 1 AM SR. LOGISTICS ANALYST Body Mass Index 21.12 03/20/2018 10:11 AM SR. LOGISTICS ANALYST Plan of Treatment Health Maintenance Due Date Last Done Comments Cervical Cancer Screening Pa p Smear (Age 30 to 64) Every 3 Years 1974 Colorectal Cancer Screening Colonoscopy (10 Years) 1974 Annual Physical 1977 Hepatitis C 1992 DTaP, Tdap and Td Vaccines ( 1 - Tdap) 1993 Hepatitis B Vaccines (1 of 3 - 19+ 3-dose series) 1993 Cervical Cancer Screening Pa p with HPV Testing (Age 30 to 64) Every 5 Years 2004 Cervical Cancer Screening with HPV 2004 Mammogram Screening 2014 Pneumococcal Vaccine: 50+ Ye ars (1 of 1 - PCV) 2024 Zoster Vaccines (1 of 2) 2024 COVID-19 Vaccine (1 - 2023-2 5 season) 2024 Meningococcal B Vaccine Aged Out No l onger eligible based on patient's age to complete this topic Meningococcal Vaccine Aged Out No ananth narciso eligible based on patient's age to complete this topic RSV Immunizations Under 20 Months Aged Out No longer eligible based on patient's age to complete this topic Insurance Care Teams Fiber Machine Tender Relationship Specialty Start Date End Date Carole Fischer MD [address] [place] [address] [id number] [id number] PCP - General 08/02/16
--- OUTSIDE RECORDS SUMMARY | 2025-01-08 17:41 | XMS_ITS | Encounter Summary ---
Author Organization [facility] Address [address] [place] [address] Care Team Providers Care Certified Genetic Counselor Name Role Phone Carole Fischer MD Primary Care Provider [phone] Encounter Details Date Type Department Care Team (Late st Contact Info) Description 06/06/2018 Lab Requisition [facility] Care DermPath Lab [address] [facility] [place] [id number] Deepti Pulido MD [address] [facility] [address] [place] [address] Social History Tobacco Use Types Packs/Day Years Used Date Smoking Tobacco: Never Assessed Comments Unknown Sex and Gender Information Value Date Recorded Sex Assigned at Not on file Legal Sex Female 3:51 PM TRENCH DIGGING MACHINE OPERATOR Gender Identity Not on file Sexual Orientation Not on file documented as of this encounter Plan of Treatment Not on file documented as of this encounter Procedures Procedure Name Priority Date/Time Associated Diagnosis Comments DERMATOPATH TECHNICAL REPORT Routine 06/04/2018 12:00 AM TRENCH DIGGING MACHINE OPERATOR documented in this encounter Results * DERMATOPATH TECHNICAL REPORT (06/04/2018 12:00 AM TRENCH DIGGING MACHINE OPERATOR) Case Report Dermatopathology Report Case: [id number] Authorizing Provider: Deepti Pulido MD Collected: 06/04/2018 12:00 AM Pathologist: Nazario Souza MD Received: 06/06/2018 06:53 AM Specimen: Skin, right dorsal hand distal 9 3:36 PM TRENCH DIGGING MACHINE OPERATOR DERMATOPATHOLOGY LABORATORY Clinical History PSO vs SCC. Non-healing. 9 3:36 PM TRENCH DIGGING MACHINE OPERATOR DERMATOPATHOLOGY LABORATORY Gross Description Specimen A: Received is one formalin filled container labeled with the patient's name and designated right dorsal hand distal. The specimen consists of a shave measuring [id number]. Jar 0. [facility] Dermatopathology Laboratory performed the technical component only. 9 3:36 PM [facility] DERMATOPATHOLOGY LABORATORY Embedded Images 3:36 PM [facility] DERMATOPATHOLOGY LABORATORY DISCLAIMER An external and internal positive and negative controls are appropriate for the histochemical, immunohistochemical and immunofluorescence stain(s) in this case (if any), except where stated explicitly. The performance characteristics of the stain(s) cited in this report were developed and its performance characteristic determined by the Dermatopathology Laboratory at [facility], directed by Dr. Alexandra Souza. These tests need not be, and therefore are not, approved by the [place] Food and Drug Administration. The tests are used for clinical purposes. 3:36 PM [facility] DERMATOPATHOLOGY LABORATORY at 1536 TRENCH DIGGING MACHINE OPERATOR Pathology/Cytolog y TISSUE SPECIMEN FROM SKIN / Unknown 06/04/2018 06/06/2018 6:53 AM TRENCH DIGGING MACHINE OPERATOR Deepti Pulido MD LAB - PATHOLOGY/CYTOLOGY OR DERABLES Final Result DERMATOPATHOLOGY LABORATORY [facility] - Department of Dermatology [address] [facility], 5th Floor Lab [address] [phone] documented in this encounter Visit Diagnoses Not on filedocumented in this encounter Care Teams Certified Genetic Counselor Relationship Specialty Start Date End Date Carole Fischer MD [address] [place] [address] [place] [phone] PCP - General 07/11/21 documented as of this encounter
--- OUTSIDE RECORDS SUMMARY | 2025-01-08 17:41 | XMS_ITS | Clinical Summary ---
Author Organization [facility] Address [address] [facility] [place] [address] Care Team Providers Care Design Supervisor Name Role Phone Carole Fischer MD Primary Care Provider [phone] [facility],non-owned Affiliates and Associated Physician Practices is amultiple site organization consisting of ambulatory clinics and hospital sitesin [place] and [place]. This disclosure is being madepursuant to the Care Everywhere program and may not contain all information available regarding this patient. Last updated 18.[facility] Social History Tobacco Use Types Packs/Day Years Used Date Smoking Tobacco: Never Assessed Comments Unknown Sex and Gender Information Value Date Recorded Sex Assigned at Not on file Legal Sex Female 3:51 PM REPORTING LEAD Gender Identity Not on file Sexual Orientation Not on file Plan of Treatment Health Maintenance Due Date Last Done Comments COLOGUARD (AGES 45-75) - COL ON CA SCREENING 1974 COLON MONITORING 1974 COLONOSCOPY - COLON CA SCREENING 1974 CT COLONOGRAPHY - COLON CA SCREENING 1974 Colorectal Cancer Screening 1974 FIT - COLON CA SCREENING 1974 FLEX SIG - COLON CA SCREENING 1974 LIPID TESTING 1974 MAMMOGRAM 1974 HIV SCREENING 1989 HEPATITIS C SCREENING 08/29/1992 DTAP/TDAP/TD VACCINES (1 - Tdap) 1993 HEPATITIS B VACCINE (1 of 3 - 19+ 3-dose series) 1993 DEPRESSION SCREENING 04/16/2024 PNEUMOCOCCAL VACCINE 50+ (1 of 1 - PCV) 2024 ZOSTER VACCINE (1 of 2) 2024 COVID-19 VACCINE (1 - 4-2 5 season) 2024 INFLUENZA VACCINE (#1) 2024 HIB VACCINE Aged Out No longer eligi ble based on patient's age to complete this topic HPV VACCINE Aged Out No longer eligi ble based on patient's age to complete this topic MENINGOCOCCAL (Group B) VACC INE SHARED DECISION-MAKING Aged Out No longer eligibl e based on patient's age to complete this topic MENINGOCOCCAL GROUPS A/C/Y/W VACCINE Aged Out No longer eligible b ased on patient's age to complete this topic Insurance [facility] Care Teams Design Supervisor Relationship Specialty Start Date End Date Carole Fischer MD [address] [place] [address] [place] [phone] PCP - General 07/11/21
--- OUTSIDE RECORDS SUMMARY | 2025-01-08 17:41 | XMS_ITS | Encounter Summary ---
Author Organization [facility] Address [address] [place] [address] Phone Care Team Providers Care Intake Specialist Name Role Phone Carole Fischer MD Primary Care Provider + Encounter Details Date Type Department Care Team (Latest Contact Info) Description 03/25/2013 Orders Only [facility] Scanning, Provider Social History Tobacco Use Types Packs/Day Years Used Date Smoking Tobacco: Never Assessed Comments Unknown Sex and Gender Information Value Date Recorded Sex Assigned at Not on file Legal Sex Female 7:26 AM RUBBER HEEL AND SOLE PRESS TENDER Gender Identity Female 09/08/2020 8:29 AM CDT Sexual Orientation Not on file documented as of this encounter Plan of Treatment Scheduled Orders Name Type Priority Associated Diagnoses Orde r Schedule SCAN - CARDIOLOGY Cardiac Services O rdered: 03/25/2013 documented as of this encounter Procedures Procedure Name Priority Date/Time Associated Diagnosis Comments SCAN - RADIOLOGY/IMAGING 03/25/2013 documented in this encounter Results * SCAN - RADIOLOGY/IMAGING (03/25/2013) Anatomical Region Laterality Modality Other us Provider Scanning Final Result documented in this encounter Visit Diagnoses Not on filedocumented in this encounter Care Teams Intake Specialist Relationship Specialty Start Date End Date Carole Fischer MD [address] [place] [address] [place] [address] PCP - General Family Medicine 02/11/20 documented as of this encounter
== END 2025-01-08 15:59 | disposition home or self-care (01) ==
DX: M54.50 Low back pain, unspecified (principal); S39.92XA Unspecified injury of lower back, initial encounter
CPT/HCPCS: 72220